=== PATIENT | female | born 1965 | race Caucasian/White ===

== ENCOUNTER → 2016-10-03 | Outpatient (CLI) | payer OTHER | LOC: OD 14:35 | PROVIDERS: ATTEND Orthopaedic Surgery | DX: S63.025A Dislocation of radiocarpal joint of left wrist, initial encounter (principal); M25.539 Pain in unspecified wrist; X58.XXXA Exposure to other specified factors, initial encounter; Z47.89 Encounter for other orthopedic aftercare ==

== ENCOUNTER → 2016-12-10 | Outpatient (CLI) | payer OTHER ==
[2016-12-10 13:55] LABS: ALANINE AMINOTRANSFERASE 20 U/L (9-52); ALBUMIN 4.5 g/dL (3.5-5.0); ALKALINE PHOSPHATASE 57 U/L (38-126); ANION GAP 12 (5-19); ASPARTATE AMINO TRANSFERASE 17 U/L (14-36); BILIRUBIN,DIRECT 0.2 mg/dL (0.0-0.4); BILIRUBIN,TOTAL 0.6 mg/dL (0.2-1.3); BLOOD UREA NITROGEN 15 mg/dL (7-20); CALCIUM 10.1 mg/dL (8.4-10.2); CARBON DIOXIDE 26 mmol/L (22-30); CHLORIDE 107 mmol/L (98-107); CHOLESTEROL 242.62 mg/dL (0-200); CREATININE RESULT 0.64 mg/dL (0.52-1.25); Direct HDL 40 mg/dL (>40); GLUCOSE 84 mg/dL (75-110); POTASSIUM 4.7 mmol/L (3.6-5.0); SODIUM 144.5 mmol/L (137-145); TOTAL PROTEIN 7.1 g/dL (6.3-8.2); TRIGLYCERIDES 378 mg/dL (<150)
[2016-12-10 14:06] LABS: DIRECT LDL 121 mg/dL (<100)
[2016-12-10 14:12] LABS: VLDL CHOLESTEROL 75.6 mg/dL (10-31)
== END ==
LOC: LAB 13:07
DX: I10 Essential (primary) hypertension (principal); L40.9 Psoriasis, unspecified
CPT/HCPCS: 36415; 80053; 80061; 84443

== ENCOUNTER → 2017-03-11 | Outpatient (CLI) | payer OTHER ==
--- NOTE | 2017-03-11 12:10 | RADIOLOGY REPORT (SQ) ---
EXAM DESCRIPTION: HAND LEFT 3 VIEWS COMPLETED DATE/TIME: 03/11/2017 11:46 am REASON FOR STUDY: PAIN IN LEFT WRIST AND HAND, PSORIASIS M25.50 PAIN IN UNSPECIFIED JOINT COMPARISON: None. EXAM PARAMETERS: NUMBER OF VIEWS: Three views. TECHNIQUE: AP, lateral and oblique radiographic images acquired of the left hand. LIMITATIONS: None. FINDINGS: MINERALIZATION: Considerable osteopenia for age. BONES: No acute fracture or dislocation. No worrisome bone lesions. JOINTS: No effusions. SOFT TISSUES: No soft tissue swelling. No foreign body. OTHER: Hardware is present in the distal radius and ulna. IMPRESSION: 1. No acute fracture. 2. There is considerable osteopenia for the patient's age. Is there clinical evidence of reflex sym pathetic dystrophy? TECHNICAL DOCUMENTATION: JOB ID: [id number] [employer]- All Rights Reserved
--- NOTE | 2017-03-11 12:11 | RADIOLOGY REPORT (SQ) ---
EXAM DESCRIPTION: WRIST LEFT 3 VIEWS COMPLETED DATE/TIME: 03/11/2017 11:46 am REASON FOR STUDY: PAIN IN LEFT WRIST AND HAND, PSORIASIS M25.50 PAIN IN UNSPECIFIED JOINT COMPARISON: None. NUMBER OF VIEWS: Three views. TECHNIQUE: AP, lateral, and oblique radiographic images acquired of the left wrist. LIMITATIONS: None. FINDINGS: MINERALIZATION: Osteopenia. BONES: No acute fracture or dislocation. There is evidence of open reduction internal fixation of di stal radial and ulnar fractures. SOFT TISSUES: No soft tissue swelling. No foreign body. OTHER: No other significant finding. IMPRESSION: No acute abnormality. Prior ORIF. TECHNICAL DOCUMENTATION: JOB ID: [id number] [employer]- All Rights Reserved
== END ==
LOC: RAD 11:10
PROVIDERS: ATTEND Physician Assistant
DX: M25.532 Pain in left wrist (principal); M85.842 Other specified disorders of bone density and structure, left hand

== ENCOUNTER 2017-08-09 12:44 | Observation (INO) | payer SELFPAY ==
[2017-08-09 15:01] LABS: ABSOLUTE BASOPHILS # (AUTO) 0.1 10^3/uL (0.0-0.2); ABSOLUTE EOSINOPHILS # (AUTO) 0.1 10^3/uL (0.0-0.6); ABSOLUTE MONOCYTES (AUTO) 0.6 10^3/uL (0.1-1.4); ABSOLUTE NEUT (AUTO) 6.3 10^3/uL (1.7-8.2); BASOPHILS % (AUTO) 0.7 % (0-2); EOSINOPHILS % (AUTO) 1.5 % (0-6); HEMATOCRIT 39.5 % (36.0-47.0); HEMOGLOBIN 13.4 g/dL (12.0-15.5); HGB HCT DIFFERENCE 0.7; LYMPHOCYTES % (AUTO) 22.1 % (13-45); MEAN CORPUSCULAR HEMOGLOBIN 31.6 pg (27.0-33.4); MEAN CORPUSCULAR VOLUME 93 fl (80-97); MONOCYTES % (AUTO) 6.1 % (3-13); RED BLOOD COUNT 4.25 10^6/uL (3.72-5.28); RED CELL DISTRIBUTION WIDTH 14.2 % (11.5-14.0); SEGMENTED NEUTROPHILS % (AUTO) 69.6 % (42-78); WHITE BLOOD COUNT 9.1 10^3/uL (4.0-10.5)
--- NOTE | 2017-08-09 15:17 | ER Document Report ---
ED Medical Screen (RME) - General Mode of Arrival: Ambulatory Information source: Patient TRAVEL OUTSIDE OF THE [place] IN LAST 30 DAYS: No - HPI Patient complains to provider of: Chest Pain Onset: Last week Associated Symptoms: Other - see notes above <ADRY DRIVER - Last Filed: 08/09/17 16:12> <KAREYWALI Shelton - Last Filed: 08/09/17 19:12> - General Chief Complaint: Chest Pain Stated Complaint: CHEST PAIN Time Seen by Provider: 08/09/17 14:21 Notes: 52 year old female with history of sudden cardiac arrest (2005; pacemaker and defibrillator) presents to the ED complaining of intermittent substernal chest pain that started 1 week ago and lasts few minutes each time. Patient describes the pain as a 'brain freeze to the chest'. Patient reports that the pain began at rest. Patient experiences bilateral arm 'heaviness' during the chest pain episodes, but denies any neurological deficits or speech changes. Patient reports chest pain episodes are more frequent now. Patient complains of congestion, but denies nausea or dizziness. (ADRY DRIVER) - Related Data Allergies/Adverse Reactions: ciprofloxacin [From Cipro] Allergy (Verified 08/09/17 12:49) Home Medications: Current Home Medications Budesonide/Formoterol Fumarate [Symbicort 160-4.5 Mcg Inhaler] 2 puff .ROUTE BID 08/09/17 [History] Lovastatin [Altoprev] 2 tab PO DAILY 08/09/17 [History] Meloxicam 15 mg PO DAILY 08/09/17 [History] Omeprazole 1 tab PO DAILY 08/09/17 [History] Oxybutynin Chloride 5 mg PO BID 08/09/17 [History] Sertraline HCl 100 mg PO DAILY 08/09/17 [History] Trazodone HCl 50 mg PO DAILY 08/09/17 [History] Past Medical History - General Information source: Patient - Social History Frequency of alcohol use: None Drug Abuse: None - Past Medical History Cardiac Medical History: Reports: Hx Hypercholesterolemia Denies: Hx Coronary Artery Disease, Hx Heart Attack, Hx Hypertension - Denies Hx of but on beta eunice r/t irregular heartbeat Pulmonary Medical History: Reports: Hx Bronchitis, Hx COPD, Hx Pneumonia Denies: Hx Asthma Neurological Medical History: Denies: Hx Cerebrovascular Accident, Hx Seizures Renal/ Medical History: Denies: Hx Peritoneal Dialysis Musculoskeltal Medical History: Reports Hx Arthritis - B/L knee, B/L shoulders, Left leg Past Surgical History: Reports: Hx Breast Surgery, Hx Hysterectomy - Immunizations Immunizations up to date: No Hx Diphtheria, Pertussis, Tetanus Vaccination: Yes <ADRY DRIVER - Last Filed: 08/09/17 16:12> Review of Systems - Review of Systems Constitutional: No symptoms reported EENT: See HPI, Nose congestion Cardiovascular: See HPI, Chest pain. denies: Dizziness Respiratory: No symptoms reported Gastrointestinal: No symptoms reported. denies: Nausea Genitourinary: No symptoms reported Female Genitourinary: No symptoms reported Musculoskeletal: No symptoms reported Skin: No symptoms reported Hematologic/Lymphatic: No symptoms reported Neurological/Psychological: No symptoms reported. denies: Speech impairment -: Yes All other systems reviewed and negative <ADRY DRIVER - Last Filed: 08/09/17 16:12> Physical Exam - General General appearance: Alert In distress: None - Respiratory Respiratory status: No respiratory distress Breath sounds: Normal - Cardiovascular Rhythm: Regular Heart sounds: Normal auscultation <ADRY DRIVER - Last Filed: 08/09/17 16:12> - Vital signs Vitals: Pulse Ox 98 08/09/17 16:48 Course - Laboratory Result Diagrams: 08/09/17 14:50 08/09/17 14:50 <ADRY DRIVER - Last Filed: 08/09/17 16:12> - Laboratory Result Diagrams: 08/09/17 14:50 08/09/17 14:50 <WALI EDEN - Last Filed: 08/09/17 19:12> - Vital Signs Vital signs: Temp Pulse Resp BP Pulse Ox 16 98 08/09/17 17:00 08/09/17 17:00 - Laboratory Laboratory results interpreted by me: 08/09/17 08/09/17 14:50 14:50 RDW 14.2 H Sodium 146.1 H Chloride 109 H Doctor's Discharge <ADRY DRIVER - Last Filed: 08/09/17 16:12> <WALI EDEN - Last Filed: 08/09/17 19:12> - Discharge Referrals: JOANNE RICHARD MD [Primary Care Provider] - Follow up as needed Scribe Documentation - Scribe Written by Scribe:: Fredrick Coburn, 08/09/2017 1626 acting as scribe for :: Long <ADRY DRIVER - Last Filed: 08/09/17 16:12>
--- NOTE | 2017-08-09 15:26 | RADIOLOGY REPORT (SQ) ---
EXAM DESCRIPTION: CHEST SINGLE VIEW COMPLETED DATE/TIME: 08/09/2017 3:19 pm REASON FOR STUDY: chest pain COMPARISON: 05/16/2016. EXAM PARAMETERS: NUMBER OF VIEWS: One view. TECHNIQUE: Single frontal radiographic view of the chest acquired. RADIATION DOSE: NA LIMITATIONS: None. FINDINGS: LUNGS AND PLEURA: No opacities, masses or pneumothorax. No pleural effusion. MEDIASTINUM AND HILAR STRUCTURES: No masses. Contour normal. HEART AND VASCULAR STRUCTURES: Heart normal in size. Normal vasculature. BONES: No acute findings. HARDWARE: Defibrillator. OTHER: No other significant finding. IMPRESSION: NO ACUTE RADIOGRAPHIC FINDING IN THE CHEST. TECHNICAL DOCUMENTATION: JOB ID: [id number] [employer]- All Rights Reserved
[2017-08-09 15:35] LABS: ALANINE AMINOTRANSFERASE 32 U/L (9-52); ALBUMIN 4.2 g/dL (3.5-5.0); ALKALINE PHOSPHATASE 59 U/L (38-126); ANION GAP 11 (5-19); ASPARTATE AMINO TRANSFERASE 20 U/L (14-36); BILIRUBIN,DIRECT 0.4 mg/dL (0.0-0.4); BILIRUBIN,TOTAL 0.4 mg/dL (0.2-1.3); BLOOD UREA NITROGEN 16 mg/dL (7-20); CALCIUM 9.5 mg/dL (8.4-10.2); CARBON DIOXIDE 26 mmol/L (22-30); CHLORIDE 109 mmol/L (98-107); CREATININE RESULT 0.83 mg/dL (0.52-1.25); GLUCOSE 106 mg/dL (75-110); POTASSIUM 4.8 mmol/L (3.6-5.0); SODIUM 146.1 mmol/L (137-145); TOTAL PROTEIN 6.9 g/dL (6.3-8.2)
--- NOTE | 2017-08-09 18:42 | ER Document Report ---
ED General - General Chief Complaint: Chest Pain Stated Complaint: CHEST PAIN Time Seen by Provider: 08/09/17 14:21 Mode of Arrival: Ambulatory Information source: Patient Notes: This is a 52-year-old female with a history of COPD, defibrillator/pacemaker presents to the emergency room with retrosternal chest heaviness. Patient's had several episodes over the last 2-3 days lasting 5-10 minutes at a time. TRAVEL OUTSIDE OF THE [place] IN LAST 30 DAYS: No - HPI Onset: Last week Onset/Duration: Gradual Quality of pain: Dull Severity: Mild Pain Level: 1 Associated symptoms: denies: Chest pain, Fever, Shortness of breath Exacerbated by: Denies Relieved by: Denies Similar symptoms previously: No Recently seen / treated by doctor: No - Related Data Allergies/Adverse Reactions: ciprofloxacin [From Cipro] Allergy (Verified 08/09/17 12:49) Home Medications: Current Home Medications Budesonide/Formoterol Fumarate [Symbicort 160-4.5 Mcg Inhaler] 2 puff .ROUTE BID 08/09/17 [History] Lovastatin [Altoprev] 2 tab PO DAILY 08/09/17 [History] Meloxicam 15 mg PO DAILY 08/09/17 [History] Omeprazole 1 tab PO DAILY 08/09/17 [History] Oxybutynin Chloride 5 mg PO BID 08/09/17 [History] Sertraline HCl 100 mg PO DAILY 08/09/17 [History] Trazodone HCl 50 mg PO DAILY 08/09/17 [History] Past Medical History - General Information source: Patient - Social History Smoking Status: Current Every Day Smoker Cigarette use (# per day): No Chew tobacco use (# tins/day): No Frequency of alcohol use: None Drug Abuse: None Lives with: Family Family History: Reviewed & Not Pertinent Patient has suicidal ideation: No Patient has homicidal ideation: No - Past Medical History Cardiac Medical History: Reports: Hx Hypercholesterolemia Denies: Hx Coronary Artery Disease, Hx Heart Attack, Hx Hypertension - Denies Hx of but on beta eunice r/t irregular heartbeat Pulmonary Medical History: Reports: Hx Bronchitis, Hx COPD, Hx Pneumonia Denies: Hx Asthma Neurological Medical History: Denies: Hx Cerebrovascular Accident, Hx Seizures Renal/ Medical History: Denies: Hx Peritoneal Dialysis Musculoskeltal Medical History: Reports Hx Arthritis - B/L knee, B/L shoulders, Left leg Past Surgical History: Reports: Hx Breast Surgery, Hx Hysterectomy - Immunizations Immunizations up to date: No Hx Diphtheria, Pertussis, Tetanus Vaccination: Yes Review of Systems - Review of Systems Constitutional: denies: Chills, Fever EENT: No symptoms reported Cardiovascular: See HPI Respiratory: No symptoms reported Gastrointestinal: No symptoms reported Genitourinary: No symptoms reported Female Genitourinary: No symptoms reported Musculoskeletal: No symptoms reported Skin: No symptoms reported Hematologic/Lymphatic: No symptoms reported Neurological/Psychological: No symptoms reported Physical Exam - Vital signs Vitals: Temp Pulse Resp BP Pulse Ox 97.5 F 58 L 17 114/66 97 08/09/17 13:01 08/09/17 13:01 08/09/17 13:01 08/09/17 13:01 08/09/17 13:01 Notes: Physical exam: GENERAL: 52-year-old female, alert and oriented 3, no acute distress. Patient not is not in any pain right now. HEAD: Atraumatic, normocephalic. EYES: Pupils equal round and reactive to light, extraocular movements intact, sclera anicteric, conjunctiva are normal. ENT: TMs normal, nares patent, oropharynx clear without exudates. Moist mucous membranes. NECK: Normal range of motion, supple without obvious mass or JVD. LUNGS: Breath sounds clear to auscultation bilaterally and equal. No wheezes rales or rhonchi. HEART: Regular rate and rhythm without murmurs, rubs or gallops. ABDOMEN: Soft, normoactive bowel sounds. No tenderness to palpation. No guarding, no rebound. No masses appreciated. EXTREMITIES: Normal range of motion, no pitting or edema. No clubbing or cyanosis. NEUROLOGICAL: Cranial nerves II through XII grossly intact. Normal speech, moving all extremities. PSYCH: Normal mood, normal affect. SKIN: Warm, Dry, normal turgor, no rashes or lesions noted. Course - Vital Signs Vital signs: Temp Pulse Resp BP Pulse Ox 97.4 F 50 L 14 102/42 L 100 08/10/17 00:33 08/10/17 02:00 08/10/17 00:33 08/10/17 00:43 08/10/17 00:43 - Laboratory Result Diagrams: 08/09/17 14:50 08/09/17 14:50 Laboratory results interpreted by me: 08/09/17 08/09/17 14:50 14:50 RDW 14.2 H Sodium 146.1 H Chloride 109 H - Diagnostic Test Radiology reviewed: Image reviewed, Reports reviewed - Chest x-ray shows defibrillator in the left chest, no infiltrates or effusions - EKG Interpretation by Me Rate: Normal Rhythm: NSR - EKG shows normal sinus rhythm with a ventricular rate of 57, there is ST depression inferiorly. There is no old EKG in comparison. Discharge - Discharge Clinical Impression: Chest pain Qualifiers: Chest pain type: precordial pain Qualified Code(s): R07.2 - Precordial pain Condition: Stable Disposition: ADMITTED OBSERVATION Admitting Provider: Hospitalist - dr beltran Unit Admitted: Telemetry
[2017-08-09] MEDS ORDERED: MORPHINE SULFATE 10 MG/ML INJ IV PRN (22:04)
[2017-08-09] MEDS ORDERED: LANSOPRAZOLE 15 MG TAB.RAP.DR PO ONE (22:04)
[2017-08-09] MEDS ORDERED: NITROGLYCERIN 0.4 MG/TAB 25 TAB/BOTTLE SL PRN (22:04)
[2017-08-09] MEDS ORDERED: ONDANSETRON HCL INJ/PF 4 MG/2 ML SDV IV PRN (22:04)
[2017-08-09] MEDS ORDERED: METOPROLOL TARTRATE 25 MG TABLET PO ONE (23:00)
--- NOTE | 2017-08-10 02:47 | EKG REPORT ---
SEVERITY:- ABNORMAL ECG - SINUS RHYTHM NONSPECIFIC ST-T CHANGES- INFERIOR LEADS : Confirmed by: Jacob Tapia MD 09-Aug-2017 19:53:55
--- NOTE | 2017-08-10 02:47 | EKG REPORT ---
SEVERITY:- ABNORMAL ECG - SINUS RHYTHM ABNORMAL T, CONSIDER ISCHEMIA, INFERIOR LEADS : Confirmed by: Jacob Tapia MD 09-Aug-2017 19:54:06
[2017-08-10 02:51] LABS: CHOLESTEROL 206.76 mg/dL (0-200); Direct HDL 37 mg/dL (>40); TRIGLYCERIDES 288 mg/dL (<150)
[2017-08-10 03:02] LABS: DIRECT LDL 120 mg/dL (<100)
[2017-08-10 03:03] LABS: CREATINE KINASE MB 0.52 ng/mL (<4.55)
[2017-08-10 03:05] LABS: VLDL CHOLESTEROL 57.6 mg/dL (10-31)
[2017-08-10 03:26] LABS: TROPONIN I 0.052 ng/mL
[2017-08-10] MEDS ORDERED: NORMAL SALINE 1000 ML 1,000 ML IV ONE (04:45)
[2017-08-10] MEDS ORDERED: ALBUTEROL SULFATE 0.083% NEB 2.5 MG/3 ML AMPUL NEB PRN (05:17)
[2017-08-10] MEDS ORDERED: NICOTINE 14 MG/24 HR PATCH.TD24 TD PRN (05:23)
--- NOTE | 2017-08-10 05:24 | PDOC H&P ---
History of Present Illness Admission Date/PCP: 08/09/17 21:51 JOANNE RICHARD MD History of Present Illness: TERI PENA is a 52 year old female with a past medical history of COPD, hypertension, hyperlipidemia, psoriatic arthritis, fibromyalgia, cataracts, psoriasis, and prior cardiac arrest resulting in placement of a pacemaker/ defibrillator in 2006 who presents to the emergency department with complaints of chest pain. Patient reports that she has had chest heaviness that she describes as "brain freeze" in her chest retrosternally over the last several days. She reports this is associated with some jaw tightness. But she denies any diaphoresis, nausea, vomiting, metallic taste in her mouth. Patient denies any associated fevers, chills, but does admit to a cough that is productive of white sputum. Patient also reports increased sinus congestion. She does report a cough more than normal. She is for the hospital service for evaluation of her chest pain. Past Medical History Cardiac Medical History: Reports: Hyperlipidema, Other - Cardiac arrest Denies: Coronary Artery Disease, Myocardial Infarction, Hypertension - Denies Hx of but on beta eunice r/t irregular heartbeat Pulmonary Medical History: Reports: Bronchitis, Chronic Obstructive Pulmonary Disease (COPD), Pneumonia Denies: Asthma EENT Medical History: Reports: Cataracts Neurological Medical History: Denies: Seizures GI Medical History: Reports: Gastroesophageal Reflux Disease Musculoskeltal Medical History: Reports: Arthritis - B/L knee, B/L shoulders, Left leg , Fibromyalgia Skin Medical History: Reports: Psoriasis Hematology: Reports: Anemia Past Surgical History Past Surgical History: Reports: Cardiac Catheterization, Hysterectomy, Orthopedic Surgery - Wrist surgery Social History Lives with: Family Smoking Status: Current Every Day Smoker Cigarettes Packs Per Day: 0.5 Frequency of Alcohol Use: None Hx Recreational Drug Use: No Hx Prescription Drug Abuse: No - Advance Directive Resuscitation Status: Full Code Surrogate healthcare decision maker:: Bunny pena Family History Family History: CAD, DM Parental Family History Reviewed: Yes Children Family History Reviewed: Yes Sibling(s) Family History Reviewed.: Yes Medication/Allergy Home Medications: Metoprolol Tartrate 25 mg PO BID 05/16/16 Budesonide/Formoterol Fumarate [Symbicort 160-4.5 Mcg Inhaler] 2 puff .ROUTE BID 08/09/17 Lovastatin [Altoprev] 2 tab PO DAILY 08/09/17 Meloxicam 15 mg PO DAILY 08/09/17 Omeprazole 1 tab PO DAILY 08/09/17 Oxybutynin Chloride 5 mg PO BID 08/09/17 Sertraline HCl 100 mg PO DAILY 08/09/17 Trazodone HCl 50 mg PO DAILY 08/09/17 Allergies/Adverse Reactions: ciprofloxacin [From Cipro] Allergy (Verified 08/09/17 12:49) Review of Systems Constitutional: ABSENT: chills, fever(s), headache(s), weight gain, weight loss Eyes: ABSENT: visual disturbances Ears: ABSENT: hearing changes Cardiovascular: PRESENT: as per HPI, chest pain. ABSENT: dyspnea on exertion, edema, orthropnea, palpitations Respiratory: PRESENT: cough, sputum. ABSENT: dyspnea, hemoptysis Gastrointestinal: ABSENT: abdominal pain, constipation, diarrhea, hematemesis, hematochezia, nausea, vomiting Genitourinary: ABSENT: dysuria, hematuria Musculoskeletal: ABSENT: joint swelling Integumentary: ABSENT: rash, wounds Neurological: ABSENT: abnormal gait, abnormal speech, confusion, dizziness, focal weakness, syncope Psychiatric: ABSENT: anxiety, depression, homidical ideation, suicidal ideation Endocrine: ABSENT: cold intolerance, heat intolerance, polydipsia, polyuria Hematologic/Lymphatic: ABSENT: easy bleeding, easy bruising Physical Exam Vital Signs: Temp Pulse Resp BP Pulse Ox 97.4 F 50 L 14 102/42 L 100 08/10/17 00:33 08/10/17 02:00 08/10/17 00:33 08/10/17 00:43 08/10/17 00:43 Intake & Output 08/08/17 08/09/17 08/10/17 06:59 06:59 06:59 Weight 78.2 kg General appearance: PRESENT: no acute distress, well-developed, well-nourished Head exam: PRESENT: atraumatic, normocephalic Eye exam: PRESENT: conjunctiva pink, EOMI, PERRLA. ABSENT: scleral icterus Ear exam: PRESENT: normal external ear exam Mouth exam: PRESENT: moist, tongue midline. ABSENT: dry mucosa Neck exam: ABSENT: JVD, lymphadenopathy, thyromegaly, tracheal deviation Respiratory exam: PRESENT: unlabored, wheezes - Very light end expiratory. ABSENT: rales, rhonchi Cardiovascular exam: PRESENT: RRR, +S1, +S2, systolic murmur. ABSENT: diastolic murmur, rubs Pulses: PRESENT: normal dorsalis pedis pul Vascular exam: PRESENT: normal capillary refill GI/Abdominal exam: PRESENT: normal bowel sounds, soft. ABSENT: distended, guarding, mass, organolmegaly, rebound, tenderness Rectal exam: PRESENT: deferred Extremities exam: PRESENT: clubbing, full ROM. ABSENT: calf tenderness, pedal edema Neurological exam: PRESENT: alert, awake, oriented to person, oriented to place , oriented to time, oriented to situation, CN II-XII grossly intact. ABSENT: motor sensory deficit Psychiatric exam: PRESENT: appropriate affect, normal mood. ABSENT: homicidal ideation, suicidal ideation Skin exam: PRESENT: dry, intact, rash - Elbows, warm. ABSENT: cyanosis Results Laboratory Results: 08/10/17 02:00 Triglycerides 288 H Cholesterol 206.76 H LDL Cholesterol Direct 120 H VLDL Cholesterol 57.6 H HDL Cholesterol 37 L 08/10/17 02:00 CK-MB (CK-2) 0.52 Troponin I 0.052 08/09/17 08/09/17 08/09/17 14:50 14:50 14:50 WBC 9.1 Hgb 13.4 Hct 39.5 Plt Count 257 Sodium 146.1 H Potassium 4.8 Chloride 109 H Carbon Dioxide 26 BUN 16 Creatinine 0.83 Glucose 106 Calcium 9.5 Alkaline Phosphatase 59 CK-MB (CK-2) Troponin I 0.046 08/09/17 08/09/17 08/10/17 20:00 20:00 02:00 WBC Hgb Hct Plt Count Sodium Potassium Chloride Carbon Dioxide BUN Creatinine Glucose Calcium Alkaline Phosphatase CK-MB (CK-2) 0.66 0.52 Troponin I 0.051 0.052 Impressions: Chest X-Ray 08/09/17 14:25 IMPRESSION: NO ACUTE RADIOGRAPHIC FINDING IN THE CHEST. Assessment & Plan - Diagnosis (1) Chest pain Qualifiers: Chest pain type: precordial pain Qualified Code(s): R07.2 - Precordial pain Is this a current diagnosis for this admission?: Yes Plan: Place patient on telemetry observation. Monitor for arrhythmia or ST segment changes. Initiate patient on metoprolol, Lipitor, oxygen, nitroglycerin, morphine, and aspirin. Serial cardiac enzymes every 6 hours. Testing lipid panel in the morning. Will obtain stress test tomorrow due to patient's risk factors and concerning history of chest pain. (2) COPD (chronic obstructive pulmonary disease) Qualifiers: COPD type: COPD with acute exacerbation Qualified Code(s): J44.1 - Chronic obstructive pulmonary disease with (acute) exacerbation Is this a current diagnosis for this admission?: Yes Plan: Patient has what sounds to be mild bronchitis. Started on doxycycline, prednisone, and nebulized (3) Psoriatic arthritis Is this a current diagnosis for this admission?: Yes (4) Hypertension Qualifiers: Hypertension type: essential hypertension Qualified Code(s): I10 - Essential (primary) hypertension Is this a current diagnosis for this admission?: Yes (5) Hyperlipidemia Qualifiers: Hyperlipidemia type: unspecified Qualified Code(s): E78.5 - Hyperlipidemia , unspecified Is this a current diagnosis for this admission?: Yes Plan: Check FLP (6) Tobacco abuse Is this a current diagnosis for this admission?: Yes Plan: Patient is advised to stop using tobacco. Counseling lasted longer than 3 minutes. (7) History of sudden cardiac arrest successfully resuscitated Is this a current diagnosis for this admission?: Yes - Time Time Spent: 30 to 50 Minutes Medications reviewed and adjusted accordingly: Yes Anticipated discharge: Home Within: within 24 hours - Inpatient Certification Based on my medical assessment, after consideration of the patient's comorbidities, presenting symptoms, or acuity I expect that the services needed warrant INPATIENT care.: No I certify that my determination is in accordance with my understanding of Medicare's requirements for reasonable and necessary INPATIENT services [42 CFR 412.3e].: No Post Hospital Care: D/C [employer] Documentation
[2017-08-10] MEDS ORDERED: LANSOPRAZOLE 30 MG TAB.RAP.DR PO SCH (06:00)
[2017-08-10 09:53] LABS: CREATINE KINASE MB 0.49 ng/mL (<4.55); TROPONIN I 0.039 ng/mL
[2017-08-10] MEDS ORDERED: SERTRALINE HCL 50 MG TABLET PO SCH (10:00)
[2017-08-10] MEDS ORDERED: ASPIRIN 325 MG TABLET, ENT COATED PO SCH (10:00)
[2017-08-10] MEDS ORDERED: LOVASTATIN PO SCH (10:00)
[2017-08-10] MEDS ORDERED: (PENDING PHARMACY ID) (Omeprazole [Omeprazole] 1 TAB) PO SCH (10:00)
[2017-08-10] MEDS ORDERED: METOPROLOL TARTRATE 25 MG TABLET PO SCH (10:00)
[2017-08-10] MEDS ORDERED: DOXYCYCLINE HYCLATE 100 MG TABLET PO SCH (10:00)
[2017-08-10] MEDS ORDERED: BUDESONIDE/FORMOTEROL 160-4.5 MCG 60 PUFF/6 GM MDI IH SCH (10:00)
[2017-08-10] MEDS ORDERED: DOCUSATE SODIUM 100 MG CAPSULE PO SCH (10:00)
[2017-08-10] MEDS ORDERED: OXYBUTYNIN CHLORIDE 5 MG TABLET PO SCH (10:00)
[2017-08-10] MEDS ORDERED: MELOXICAM 15 MG TABLET PO SCH (10:00)
[2017-08-10] MEDS ORDERED: PREDNISONE 20 MG TABLET PO SCH (10:00)
--- NOTE | 2017-08-10 14:37 | RADIOLOGY REPORT (SQ) ---
EXAM DESCRIPTION: CTA CHEST COMPLETED DATE/TIME: 08/10/2017 1:57 pm REASON FOR STUDY: chest pain COMPARISON: Chest films 08/09/2017, 05/16/2016 TECHNIQUE: CT scan of the chest performed using helical scanning technique with dynamic intravenous contrast injection. Images reviewed with lung, soft tissue and bone windows. Reconstructed coronal and sagittal MPR images reviewed. Additional 3 dimensional post-processing performed to develop Maximal Intensity Projection images (CO P). All images stored on PACS. All CT scanners at this facility use dose modulation, iterative reconstruction, and/or weight based d osing when appropriate to reduce radiation dose to as low as reasonably achievable (ALARA). [facility]: Dose Right [facility]: CareDose [facility]: Dose Right [facility]: Teradose 4D [facility]: Smart [employer] CONTRAST TYPE AND DOSE: contrast/concentration: Isovue 370.00 mg/ml; Total Contrast Delivered: 71.0 ml; Total Saline Delivered: 110.1 ml Contrast bolus optimized for the pulmonary arteries. Not diagnostic for the aorta. RENAL FUNCTION: Creatinine 0.8 RADIATION DOSE: 32 mGy . LIMITATIONS: None. FINDINGS: LUNGS AND PLEURA: No masses, infiltrates, pneumothorax. No pleural effusions, calcificati ons. AORTA AND GREAT VESSELS: No aneurysm. Contrast bolus not optimized for the aorta. HEART: No pericardial effusion. No significant coronary artery calcifications. PULMONARY ARTERIES: No emboli visualized in the main pulmonary arteries or the segmental branches. HILAR AND MEDIASTINAL STRUCTURES: No identified masses or abnormal nodes. HARDWARE: Left-sided dual lead pacemaker UPPER ABDOMEN: No significant findings. Limited exam. THYROID AND OTHER SOFT TISSUES: No masses. No adenopathy. BONES: No acute or significant finding. 3D MIPS: Confirm above findings. OTHER: No other significant finding. IMPRESSION: No CT angio evidence of acute pulmonary emboli. No gross thoracic aortic dissection. No focal infiltrates. COMMENT: Quality ID # [id number]: Final reports with documentation of one or more dose reduction techniques (e.g., Automated exposure control, adjustment of the mA and/or kV according to patient size, use of iterative reconstruction technique) TECHNICAL DOCUMENTATION: JOB ID: [id number] [employer]- All Rights Reserved
[2017-08-10 14:56] VITALS: BP 119/67
[2017-08-10 15:49] LABS: CREATINE KINASE MB 0.7 ng/mL (<4.55); TROPONIN I 0.032 ng/mL
--- NOTE | 2017-08-10 18:09 | PDOC DISCHARGE SUMMARY ---
General - Admit/Disc Date/PCP Admission Date/Primary Care Provider: 08/09/17 21:51 JOANNE RICHARD MD Discharge Date: 08/10/17 - Discharge Diagnosis (1) COPD (chronic obstructive pulmonary disease) Is this a current diagnosis for this admission?: Yes (2) Chest pain Is this a current diagnosis for this admission?: Yes (3) History of sudden cardiac arrest successfully resuscitated Is this a current diagnosis for this admission?: Yes (4) Hypertension Is this a current diagnosis for this admission?: Yes (5) Psoriatic arthritis Is this a current diagnosis for this admission?: Yes (6) Tobacco abuse Is this a current diagnosis for this admission?: Yes - Additional Information Resuscitation Status: Full Code Discharge Diet: Cardiac Discharge Activity: Activity As Tolerated Home Medications: Budesonide/Formoterol Fumarate [Symbicort 160-4.5 Mcg Inhaler] 2 puff .ROUTE BID 08/09/17 Lovastatin [Altoprev] 2 tab PO DAILY 08/09/17 Meloxicam 15 mg PO DAILY 08/09/17 Omeprazole 1 tab PO DAILY 08/09/17 Oxybutynin Chloride 5 mg PO BID 08/09/17 Sertraline HCl 100 mg PO DAILY 08/09/17 Trazodone HCl 50 mg PO QHS 08/09/17 Azithromycin [Zithromax Tri-Fred] 500 mg PO DAILY #1 pkg 08/10/17 Melatonin/Pyridoxine HCl (B6) [Melatonin 10 mg Tablet] 10 mg PO QHS 08/10/17 Methylprednisolone [Medrol Dosepack (4 mg/Tab) 21 Tab/Dosepak] 4 mg PO ASDIR PRN #21 tab.ds.pk 08/10/17 Metoprolol Tartrate 12.5 mg PO BID #0 08/10/17 Nitroglycerin [Nitrostat 0.4 mg (1/150 Gr) Tabs 25/Bottle] 1 tab SL Q5MP PRN # 25 bottle 08/10/17 History of Present Illness History of Present Illness: TERI PENA is a 52 year old female with a history of COPD, hypertension, hyperlipidemia, psoriatic arthritis, fibromyalgia, cataracts, psoriasis and prior cardiac arrest presenting with complaint of chest pain 1 week. Hospital Course Hospital Course: Patient with chest pain. Patient serial troponins were indeterminate. Patient had one more episode of chest pain while in the hospital. Patient was given nitroglycerin she stated she could not tell if that helped her did not. Patient did do a CTA to rule out PE which was negative for PE or any infiltrate. Patient has been having increased cough and congestion concerning for possible acute bronchitis and/or COPD exacerbation. Patient was started on oral steroids and doxycycline. It was further advised to stop smoking. Patient was evaluated by Dr. Rucker who recommended that patient follow her drying machine operator who has her scheduled for a stress test as an outpatient already. He also recommended that patient be given nitro and discharge. Patient continued on her home medications for her hypertension. Physical Exam Vital Signs: Temp Pulse Resp BP Pulse Ox 98.3 F 68 16 119/67 94 08/10/17 14:54 08/10/17 15:07 08/10/17 15:07 08/10/17 14:54 08/10/17 15:07 Intake & Output 08/09/17 08/10/17 08/11/17 06:59 06:59 06:59 Intake Total 1300 Balance 1300 Weight 78.2 kg General appearance: PRESENT: no acute distress, well-developed, well-nourished Head exam: PRESENT: atraumatic, normocephalic Eye exam: PRESENT: conjunctiva pink, EOMI, PERRLA. ABSENT: scleral icterus Ear exam: PRESENT: normal external ear exam Mouth exam: PRESENT: moist, tongue midline Neck exam: ABSENT: carotid bruit, JVD, lymphadenopathy, thyromegaly Respiratory exam: PRESENT: clear to auscultation gennaro. ABSENT: rales, rhonchi, wheezes Cardiovascular exam: PRESENT: RRR. ABSENT: diastolic murmur, rubs, systolic murmur Pulses: PRESENT: normal dorsalis pedis pul Vascular exam: PRESENT: normal capillary refill GI/Abdominal exam: PRESENT: normal bowel sounds, soft. ABSENT: distended, guarding, mass, organolmegaly, rebound, tenderness Rectal exam: PRESENT: deferred Extremities exam: PRESENT: full ROM. ABSENT: calf tenderness, clubbing, pedal edema Neurological exam: PRESENT: alert, awake, oriented to person, oriented to place , oriented to time, oriented to situation, CN II-XII grossly intact. ABSENT: motor sensory deficit Psychiatric exam: PRESENT: appropriate affect, normal mood. ABSENT: homicidal ideation, suicidal ideation Skin exam: PRESENT: dry, intact, warm. ABSENT: cyanosis, rash Results Laboratory Results: 08/10/17 02:00 Triglycerides 288 H Cholesterol 206.76 H LDL Cholesterol Direct 120 H VLDL Cholesterol 57.6 H HDL Cholesterol 37 L 08/10/17 08/10/17 08/10/17 02:00 08:20 14:57 CK-MB (CK-2) 0.52 0.49 0.70 Troponin I 0.052 0.039 0.032 Impressions: Chest X-Ray 08/09/17 14:25 IMPRESSION: NO ACUTE RADIOGRAPHIC FINDING IN THE CHEST. Chest/Abdomen CTA 08/10/17 00:00 IMPRESSION: No CT angio evidence of acute pulmonary emboli. No gross thoracic aortic dissection. No focal infiltrates. Qualifiers PATEINT BEING DISCHARGED WITH ANY OF THE FOLLOWING DIAGNOSIS?: No Plan Time Spent: Greater than 30 Minutes
[2017-08-10] MEDS ORDERED: ATORVASTATIN CALCIUM 40 MG TABLET PO SCH (22:00)
[2017-08-10] MEDS ORDERED: TRAZODONE HCL 50 MG TABLET PO SCH (22:00)
--- NOTE | 2017-08-11 04:58 | CONSULTATION REPORT E ---
Consultation Report NAME: TERI PENA : 1965 AGE: 52Y DATE: 08/10/2017 318 B TO: GARRETT MCLEAN M.D. FROM: CLAUDIA MURDOCK M.D. Requesting Physician REASON FOR CONSULTATION: Chest pain and abnormal EKG. HISTORY OF PRESENT ILLNESS: The patient is a 52-year-old female with a history of COPD, who continues to smoke, hypertension, hyperlipidemia, psoriatic arthritis, fibromyalgia, cataracts, and history of prior cardiac arrest resulting in AICD in 2005. The patient states she has had some pains in the chest, which she describes as a "brain freeze" in the left front of the chest. This has been happening for a few days and the patient is scheduled to have an IV Lexiscan Cardiolite stress test with Dr. Anglin 08/21/2017. The patient is not a very good historian, but states that she has pain, which is dull in nature and although she said it is not reproducible, on pressing on the chest, it does reproduce the pain. She also states with exertion it increases, but then adds just if she walks softly without jolting her chest or moving her chest, then it does not hurt. If she jolts her chest when walking or if she moves her torso, then it hurts and hence most likely it is noncardiac chest pain, but the patient has an EKG, which shows Q wave inversion in the inferior leads suggestive of ischemia. It is not known whether this is an old finding since the patient had a cardiac arrest in 2005 in [place]. The patient states in 2005, she had a cardiac arrest and the etiology was not diagnosed. She had a defibrillator placed in 2005 and in 2009, she had an AICD battery change. In 2012, she said she had the leads replaced. She has also had a hysterectomy, cardiac catheterization, orthopedic surgery of her left wrist. PAST MEDICAL HISTORY: Positive for history of: 1. Hyperlipidemia 2. Hypertension. 3. COPD. 4. Psoriatic arthritis. 5. Fibromyalgia. 6. History of cardiac arrest as mentioned earlier. 7. She also has history of GERD. 8. She also has history of bilateral knee and shoulder arthritis. 9. She also has history of anemia. CODE STATUS: The patient is FULL CODE. Her is the surrogate healthcare decision maker. SOCIAL HISTORY: The patient smokes about 1/2 pack of cigarettes per day. There is no history of ETOH abuse. FAMILY HISTORY: Positive for coronary artery disease and diabetes mellitus. ALLERGIES: She is allergic to CIPRO. MEDICATIONS: In the hospital: 1. Prevacid 30 mg 1 p.o. daily. 2. Morphine sulfate 2 mg IV q.4 hours p.r.n. 3. Nitroglycerin 1 tablet sublingual q.5 minutes p.r.n. 4. Zofran 4 mg IV q.6 hours p.r.n. 5. Metoprolol 25 mg p.o. b.i.d. 6. She did receive normal saline 1000 mL bolus x1. 7. Albuterol sulfate/Ventolin nebulizer treatment 2.5/10 mg q.2 hours p.r.n. 8. Nicotine patch topically 14 mg/24 hours to chest wall daily. 9. Aspirin 325 mg p.o. daily. 10. Colace 100 mg daily. 11. Symbicort 2 puffs inhalation b.i.d. 12. Lovastatin 2 tablets p.o. daily. 13. Mobic 15 mg p.o. daily. 14. Omeprazole 1 tablet p.o. daily. 15. Ditropan 5 mg p.o. b.i.d. 16. Sertraline 100 mg p.o. daily. 17. Doxycycline 100 mg p.o. q.12 hours. 18. Prednisone 30 mg p.o. b.i.d. 19. Desyrel 15 mg p.o. at bedtime. REVIEW OF SYSTEMS: CONSTITUTIONAL: Denies any fevers, chills or rigors. Complains of generalized fatigue. HEAD: No history of headaches or dizziness. EYES: No history of amblyopia or diplopia. No history of amaurosis fugax. EARS/NOSE: No history of hearing loss. No history of tinnitus. No recurrent ear infections. No history of deviated nasal septum. No history of hay fever. No history of polyps. MOUTH: No history of altered taste sensation. No bleeding from the gums. No history of ulcers in the mouth. THROAT: No odynophagia or dysphagia. No history of recurrent sore throat. SKIN: There are no skin rashes. There is no urticaria or ecchymoses. NECK: Denies history of neck pain. No goiter. LUNGS: History of asthma/COPD. No recent wheezing or cough or sputum production. No history pulmonary embolism. No history of sleep apnea. CARDIAC: No history of pleuritic chest pain. History of noncardiac chest pain as mentioned earlier most likely. MUSCULOSKELETAL: History of arthritis of knees and shoulders, and history of fibromyalgia. GASTROINTESTINAL: No history of GI bleed. No history of fatty food intolerance, no history of cirrhosis of the liver. No altered bowel movements. RENAL: No history of renal failure. No history of symptoms of UTI. No history of hematuria, pyuria, or dysuria. ENDOCRINE: No history of diabetes mellitus. No history of thyroid disease. METABOLIC: History of hyperlipidemia present. CENTRAL NERVOUS SYSTEM: No history of TIA or CVA. No history of headaches, migraines or seizures. No history of gait imbalance. No history of sleep apnea. PSYCHIATRIC: History of depression present, controlled with medications. No history of homicidal ideation. No history of suicidal ideation. VASCULAR: No history of calf or buttock claudication. No history of DVT. HEMATOLOGIC: No history of bleeding diathesis or clotting disorders. PHYSICAL EXAMINATION: GENERAL: The patient is slightly overweight in no acute distress. She is well groomed. VITAL SIGNS: She is afebrile with a temperature of 98.3 degrees Fahrenheit, pulse 50 beats per minute, blood pressure 112/57, respirations 16 per minute, O2 saturation 95% on room air. HEAD: Atraumatic, normocephalic. EYES: Pupils are equal, round, regular, reactive to light and accommodation. Extraocular movements are normal. There is no conjunctival pallor. There is no scleral icterus. EARS: Tympanic membranes are intact. External auditory canals are clear. There are no lesions on the pinnae. NOSE: There is no deviated nasal septum. There is no inflammation of the nasal mucous membranes. MOUTH: Mucous membranes of the mouth are moist. Tongue is moist. There are no ulcers. There is no bleeding from the gums. THROAT: There is no redness of the oropharynx. There is no exudate. SKIN: There is no skin rash or petechiae or ecchymoses. There are no skin lesions. NECK: Supple. There is no JVD. Carotids are equal. There is no bruit. There is no goiter. CHEST: Where the patient claims to have chest pain, it is reproducible by pressing on the chest wall. LUNGS: Show diminished air entry, prolonged expiration on auscultation, but otherwise without any rhonchi, rales or wheezing. On percussion, there is hyperresonance. HEART: S1, S2 heard. There is no S3 gallop. There is no S4 gallop. There is a systolic murmur left sternal border at the apex. There is no rub. ABDOMEN: Soft, nontender. There is no hepatosplenomegaly. Bowel sounds are well heard. There are no tender areas or masses. EXTREMITIES: Femorals are diminished. There is no femoral bruit. Pedal pulses are well felt. There is no pedal edema. There is no DVT or cellulitis. CENTRAL NERVOUS SYSTEM: The patient is conscious, awake, alert, oriented x3 with no focal deficit. PSYCHIATRIC: The patient's judgement and insight are intact. Her affect is normal. DIAGNOSTIC DATA: The patient's chest and abdominal CTA showed no evidence of pulmonary emboli. There is no gross thoracic aortic dissection. No focal infiltrates. The patient's EKG shows sinus rhythm. T inversion in the inferior leads, cannot rule out ischemia. The patient's white count is 9100, hemoglobin 13.4, hematocrit 29.5 and platelet count 257,000. The patient's cardiac enzymes show a negative CPK-MB and troponin-I is indeterminate/negative at 0.052, 0.039 and 0.032. The patient's triglycerides are elevated at 288, total cholesterol 206/76, LDL cholesterol 120 and HDL low at 37. The patient's sodium is 146, potassium 4.8, chloride 109, CO2 26, BUN 16, creatinine 0.83, GFR greater than 60, glucose 106, calcium 9.5. Liver function tests are normal. The patient's total protein is 6.9, albumin 4.2. IMPRESSION: 1. CHEST PAIN, MOST LIKELY NONCARDIAC. 2. ABNORMAL ELECTROCARDIOGRAM. 3. HISTORY OF CARDIAC ARREST IN 2005, STATUS POST ACID. 4. HISTORY OF AICD PLACEMENT WITH NO RECENT FIRING. 5. HYPERTENSION. 6. HYPERLIPIDEMIA/DYSLIPIDEMIA. 7. FIBROMYALGIA. 8. CHRONIC OBSTRUCTIVE PULMONARY DISEASE. 9. TOBACCO ABUSE DISORDER. 10. PSORIASIS. 11. ARTHRITIS. 12. DEPRESSION. 13. GASTROESOPHAGEAL REFLUX DISEASE. RECOMMENDATIONS: Would recommend to continue the patient on the current medications including metoprolol, aspirin. Would recommend since it is not known whether the EKG has been abnormal for some time and since the patient has definite anginal symptoms and the patient is already scheduled for a stress test as an outpatient, would recommend giving the patient sublingual nitroglycerin. The patient has been counseled to stop smoking. Note, the patient was seen around 8:15 a.m. this morning. Forty-five minutes spent on the patient with more than 50% of the time spent in counseling. The patient's medications have been reviewed and I discussed the case with the hospitalist. Medical decision-making was of moderate to high complexity. In view of the abnormal EKG, the patient's atypical/most likely noncardiac chest pain, the patient has been counseled to stop smoking. I have also discussed with the patient the need to watch her diet and bring her LDL cholesterol to 70 or below. Discussed with the hospitalist okay to discharge the patient and the patient will come back to the emergency room if she has any problems. She is going to contact Dr. Anglin on Saturday to see if they move up the stress test. DICTATING PHYSICIAN: GARRETT MCLEAN M.D. [id number] PHY#: [id number] ID: [id number] JOB#: [id number] ACCT: [id number] cc:GARRETT MCLEAN M.D. >
== END 2017-08-10 14:30 | disposition home or self-care (01) ==
LOC: ER 12:44 → EH 21:51 → 3W 08-10 00:24
PROVIDERS: ADMIT Family Medicine; ATTEND Family Medicine
PROC: HZ31ZZZ Individual Counseling for Substance Abuse Treatment, Behavioral (ICD-10-PCS; principal; 2017-08-09)
DX: J44.9 Chronic obstructive pulmonary disease, unspecified (principal); R07.9 Chest pain, unspecified; Z86.74 Personal history of sudden cardiac arrest; I10 Essential (primary) hypertension; L40.50 Arthropathic psoriasis, unspecified; E78.5 Hyperlipidemia, unspecified; F17.210 Nicotine dependence, cigarettes, uncomplicated; M79.7 Fibromyalgia; K21.9 Gastro-esophageal reflux disease without esophagitis; R94.31 Abnormal electrocardiogram [ECG] [EKG]; F32.9 Major depressive disorder, single episode, unspecified; R29.898 Other symptoms and signs involving the musculoskeletal system; M13.812 Other specified arthritis, left shoulder; M13.811 Other specified arthritis, right shoulder; M13.862 Other specified arthritis, left knee; M13.861 Other specified arthritis, right knee; Z79.899 Other long term (current) drug therapy; Z79.1 Long term (current) use of non-steroidal anti-inflammatories (NSAID); Z95.810 Presence of automatic (implantable) cardiac defibrillator; Z82.49 Family history of ischemic heart disease and other diseases of the circulatory system; Z79.51 Long term (current) use of inhaled steroids
CPT/HCPCS: 93005; 99285; 36415 ×2; 82553 ×2; 82550; 85025; 80053; 84484 ×2; 80061; 71010; 71275; 93010; 99406; G0378 ×3; J7512; J3490; J7030

== ENCOUNTER → 2018-04-28 | Outpatient (CLI) | payer MEDICAID ==
--- NOTE | 2018-04-28 16:47 | RADIOLOGY REPORT (SQ) ---
EXAM DESCRIPTION: LUMBAR SPINE 2 VIEWS COMPLETED DATE/TIME: 04/28/2018 4:28 pm REASON FOR STUDY: LOW BACK PAIN M54.5 LOW BACK PAIN COMPARISON: None. NUMBER OF VIEWS: Two views. TECHNIQUE: AP and lateral radiographic images acquired of the lumbar spine. LIMITATIONS: None. FINDINGS: MINERALIZATION: Normal. SEGMENTATION: Normal. No transitional anatomy. ALIGNMENT: Normal. VERTEBRAE: Maintained height. No fracture or worrisome bone lesion. DISCS: Preserved height. No significant osteophytes or end plate irregularity. POSTERIOR ELEMENTS: Pedicles and facets are intact. No pars defect or posterior arch defects. HARDWARE: None in the spine. PARASPINAL SOFT TISSUES: Normal. PELVIS: Intact as visualized. No fractures or worrisome bone lesions. SI joints intact. OTHER: No other significant finding. IMPRESSION: NORMAL 2 VIEW LUMBAR SPINE. TECHNICAL DOCUMENTATION: JOB ID: [id number] [employer]- All Rights Reserved Reading location - IP/workstation name: [email or web address]
== END ==
LOC: OD 16:10
PROVIDERS: ATTEND Physician Assistant
DX: M54.5 Low back pain (principal)
CPT/HCPCS: 72100

== ENCOUNTER → 2018-10-23 | Outpatient (CLI) | payer MEDICARE, MEDICAID ==
--- NOTE | 2018-10-23 15:25 | RADIOLOGY REPORT (SQ) ---
EXAM DESCRIPTION: CT LUMBAR SPINE WITHOUT COMPLETED DATE/TIME: 10/23/2018 1:45 pm REASON FOR STUDY: LOW BACK PAIN M54.2 CERVICALGIA M54.5 LOW BACK PAIN COMPARISON: LUMBAR SPINE FILMS 04/28/2018 TECHNIQUE: Axial images acquired through the lumbar spine without intravenous contrast. Images revi ewed with lung, soft tissue and bone windows. Reconstructed coronal and sagittal MPR images reviewed . All images stored on PACS. All CT scanners at this facility use dose modulation, iterative reconstruction, and/or weight based d osing when appropriate to reduce radiation dose to as low as reasonably achievable (ALARA). [facility]: Dose Right [facility]: CareDose [facility]: Dose Right [facility]: Teradose 4D [facility]: [id number] RADIATION DOSE: CT Rad equipment meets quality standard of care and radiation dose reduction techniq ues were employed. CTDIvol: 21.4 mGy. DLP: 623 mGy-cm. mGy. LIMITATIONS: None. FINDINGS: SEGMENTATION: Normal. No transitional anatomy. ALIGNMENT: Normal. VERTEBRAL BODIES: No fractures. No dislocation. No acute findings. DISCS: T12-L1, L1-2 levels are unremarkable. At L2-3, mild central canal stenosis results from broad diffuse posterior disc bulge along with moder ate facet and ligament hypertrophy. Mild bilateral inferior foraminal narrowing without exiting L2 n erve root impingement. At L3-4, moderate central canal stenosis results from broad diffuse posterior disc bulge and bulky bi lateral facet and ligament hypertrophy. This is best shown on axial image 51. There is mild to mode rate bilateral inferior foraminal narrowing without exit L3 nerve root impingement. At L4-5, mild central canal stenosis results from broad diffuse posterior disc bulge along with moder ate facet and ligament hypertrophy. This is best shown on axial image 64. Moderate bilateral forami nal narrowing is present without exiting L4 nerve root impingement. At L5-S1, no central or foraminal encroachment is present. Mild bilateral facet hypertrophy. PEDICLES, TRANSVERSE PROCESSES: No fractures. No dislocation. No acute findings. FACETS, POSTERIOR ELEMENTS: Multilevel facet arthropathy with moderate central canal stenosis at L3-4 as above HARDWARE: None in the spine. VISUALIZED RIBS: No fractures. SOFT TISSUES: No significant or acute finding in adjacent soft tissues. OTHER: No other significant finding. IMPRESSION: Moderate central canal stenosis at L3-4 Mild central canal stenosis at L2-3 and L4-5. TECHNICAL DOCUMENTATION: JOB ID: [id number] Quality ID # [id number]: Final reports with documentation of one or more dose reduction techniques (e.g., Au tomated exposure control, adjustment of the mA and/or kV according to patient size, use of iterative reconstruction technique) 2010 [employer]- All Rights Reserved Reading location - IP/workstation name: [email or web address]
--- NOTE | 2018-10-23 15:48 | RADIOLOGY REPORT (SQ) ---
EXAM DESCRIPTION: CT CERVICAL SPINE WITHOUT COMPLETED DATE/TIME: 10/23/2018 1:45 pm REASON FOR STUDY: CERVICALGIA M54.2 CERVICALGIA M54.5 LOW BACK PAIN COMPARISON: None. TECHNIQUE: Axial images acquired through the cervical spine without intravenous contrast. Images re viewed with lung, soft tissue and bone windows. Reconstructed coronal and sagittal MPR images review ed. Images stored on PACS. All CT scanners at this facility use dose modulation, iterative reconstruction, and/or weight based d osing when appropriate to reduce radiation dose to as low as reasonably achievable (ALARA). [facility]: Dose Right [facility]: CareDose [facility]: Dose Right [facility]: Teradose 4D [facility]: [employer] RADIATION DOSE: CT Rad equipment meets quality standard of care and radiation dose reduction techniq ues were employed. CTDIvol: 21.4 mGy. DLP: 510 mGy-cm. mGy. LIMITATIONS: None. FINDINGS: ALIGNMENT: Anatomic. MINERALIZATION: Normal. VERTEBRAL BODIES: No fractures or dislocation. DISCS: Craniocervical junction, C1-2, C2-3, and C3-4 levels are unremarkable. At C4-5, broad diffuse posterior disc bulge and bony spurring is present, with effacement of the vent ral thecal sac. This abuts the ventral cord with mild cord flattening on axial images 39 and 40, and sagittal reconstruction images 17-20. No right foraminal narrowing. Mild left foraminal narrowing from facet and uncovertebral hypertrophy. At C5-6, mild diffuse posterior disc bulge and bony spurring is present without central canal narrowi ng. There is mild right foraminal narrowing from facet and uncovertebral hypertrophy. No left libby inal stenosis. At C6-7 and C7-T1, no central or foraminal stenosis is present. FACETS, LATERAL MASSES, POSTERIOR ELEMENTS: No fractures. No dislocation. No acute findings. HARDWARE: None in the spine. VISUALIZED RIBS: No fractures. LUNG APICES AND SOFT TISSUES: No significant or acute findings. OTHER: No other significant finding. IMPRESSION: Degenerative disc changes most pronounced at C4-5. TECHNICAL DOCUMENTATION: JOB ID: [id number] Quality ID # [id number]: Final reports with documentation of one or more dose reduction techniques (e.g., Au tomated exposure control, adjustment of the mA and/or kV according to patient size, use of iterative reconstruction technique) 2010 [employer]- All Rights Reserved Reading location - IP/workstation name: [email or web address]
== END ==
LOC: RAD 13:26
PROVIDERS: ATTEND Physician Assistant
DX: M50.321 Other cervical disc degeneration at C4-C5 level (principal); M54.5 Low back pain; M48.061 Spinal stenosis, lumbar region without neurogenic claudication
CPT/HCPCS: 72125; 72131